=== PATIENT | male | born 1980 | race Caucasian/White ===

== ENCOUNTER 2020-11-12 13:11 | Emergency (ER) | payer SELFPAY ==
[2020-11-12 13:21] VITALS: BP 145/79; PULSE 114; RESP 16; TEMP 36.3; O2SAT 95; BMI 23.5
--- NOTE | 2020-11-12 13:55 | ED_ITS ---
HPI - Back Pain/Injury General: Chief Complaint: Back Pain/Injury Stated Complaint: Back Pain Time Seen by Provider: 11/12/20 13:31 Source: patient Mode of arrival: wheelchair Limitations: no limitations History of Present Illness: HPI Narrative: Patient is a 40-year-old male who presents to ED today with a complaint of left lower back pain and inability to ambulate over the past 6 days. Patient states he was seen at [facility] and admitted to their hospital for pain management as well as a diagnosis of pneumonia. History is somewhat difficult to follow but he states he was given excessive amounts of narcotic pain medications while in the hospital and eventually left AMA stating he felt like they were going to kill him. He states no imaging was obtained of his back and he received no evaluation in regards to his back pain. Patient tells me when he goes to ambulate he feels like his left lower extremity amilcar. He denies fevers/chills. No saddle anesthesia. He is not complaining of urinary incontinence/retention or bowel incontinence. He states pain radiates into his left buttock. He is not complaining of numbness, tingling, loss of sensation to the extremity. He has not noticed any color/temperature changes to the extremity. MD elicited complaint: back pain Onset (ago): day(s) Timing: constant Severity: severe Similar Symptoms Previously: No Quality: sharp and stabbing Location: lumbar spine and left lower back Radiation: buttocks Exacerbating factors: movement and walking Relieving factors: immobilization and sitting upright Associated symptoms: Reports difficulty walking; Deny abdominal pain, chills, dysuria, fatigue, fecal incontinence, fever(s), hematuria, nausea or vomiting Treatments prior to arrival: prescription analgesics Work related injury: No Review of Systems Const: Denies: fever(s), chills, body aches, fatigue or malaise Card: Denies: chest pain Resp: Denies: dyspnea GI: Denies: abdominal pain, nausea, vomiting, diarrhea or fecal incontinence : Denies: flank pain, dysuria or hematuria Musc: Reports: back pain; Denies: neck pain, extremity pain, extremity swelling, joint pain or joint swelling Neuro: Reports: difficulty walking; Denies: headache(s), numbness in extremities, weakness in extremities, sensory changes, lack of coordination or confusion [facility] ED PFSH: Social History Smoking and tobacco status: current every day smoker Substance/Drug Use: former Date of 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; 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 Physical Exam Const: COMMON NORMALS: no acute distress, average body habitus, patient oriented x3, no limitations, healthy appearing, alert and well nourished NUTRITIONAL APPEARANCE: thin ORIENTATION/CONSCIOUSNESS: Yes awake, Yes oriented to person, Yes oriented to place and Yes oriented to time HENMT: COMMON NORMALS: normocephalic and atraumatic HEAD & SCALP: normocephalic and atraumatic Resp: COMMON NORMALS: normal respiratory effort and clear to auscultation bilaterally AUSCULTATION: clear to auscultation bilaterally Cardio: COMMON NORMALS: regular rhythm RATE: tachycardic RHYTHM: regular rhythm GI: COMMON NORMALS: Normal to inspection, nondistended, normoactive bowel sounds present, Soft to palpation, non-tender, No hepatosplenomegaly present and no masses PALPATION: Yes Soft to palpation and Yes No hepatosplenomegaly present : COMMON NORMALS: Yes no CVA tenderness BLADDER/KIDNEY EXAM: Yes no CVA tenderness Back/Pelvis: COMMON NORMALS: no CVA tenderness THORACIC SPINE/UPPER BACK: Yes normal to inspection, Yes thoracic ROM normal, No thoracic spinal tenderness and No paraspinal muscle tenderness LUMBAR SPINE/LOWER BACK: Yes lumbar ROM normal, Yes pain with ROM, No lumbar spinal tenderness and Yes straight leg raise positive left PELVIS: Yes buttock abnormal Buttock abnormal laterality: left Left buttock abnormal details: tenderness SACROILIAC JOINTS: Yes SI joint(s) abnormal SI joint details: tender to palpation (L) BACK IMAGE (MALE): 1. TTP Extremity: COMMON NORMALS: normal to inspection, full ROM, capillary refill normal, no joint enlargement, no clubbing, cyanosis or edema, no calf tenderness and no pedal edema GENERAL: Yes normal exam except as noted OTHER: normal bilateral LE DP/PT pulses and cap refill; sensory normal; normal ROM of knee/hip joints Neuro: COMMON NORMALS: patient oriented x3, moves all extremities, no focal motor deficits and no sensory deficits noted SENSORIUM/ORIENTATION: Yes alert, Yes oriented to person, Yes oriented to place and Yes oriented to time MOTOR EXAM: 5/5 motor strength present throughout DEEP TENDON REFLEXES: Right patellar reflex intensity grade: 2+ and Left patellar reflex intensity grade: 2+ Skin: COMMON NORMALS: no rashes or lesions noted NARRATIVE SKIN EXAM: multiple tattoos GENERAL SKIN EXAM: no rashes or lesions noted TRAUMA: no lacerations or abrasions Course Vital Signs: Vital signs: Vital Signs Temperature 97.4 F L 11/12/20 13:21 Pulse Rate 114 H 11/12/20 13:21 Respiratory Rate 16 11/12/20 13:21 Blood Pressure 145/79 11/12/20 13:21 Pulse Oximetry 95 11/12/20 13:21 MDM - Back Pain/Injury MDM Narrative: Medical decision making narrative: After IM Dexamethasone and Toradol patient reports his pain is improved. He was able to ambulate around the emergency department without assistance. He is requesting a walker to go home with that he may use if pain spikes or returns. Patient has no acute neurologic deficits on exam. CT imaging does show disc bulging and osteophyte complex at L5-S1 contacting the L5-S1 nerve roots which would match patient's symptoms. Patient requesting referral to Dr. Mcgraw for further evaluation stating he has not able to work secondary to pain and trouble ambulating and would like to have a consultation in regards to surgical options. Referral placed with case management. Patient was discharged from [facility] with pain medications, steroids, and muscle relaxers. He may use these as needed for his discomfort. Imaging Data^: CT lumbar: Radiologist's impression: [address] [address] [address] Scan Report Signed Patient: Rush Leo Unit #: [id number] : 1980 Age/Sex: 40 / M ADM Date: 11/12/20 Loc: ER Room/Bed: Attending Dr: Ordering Provider/Ordering MD: Day Ruth Date of Service: 11/12/20 Procedure(s): CT lumbar spine wo con* [id number] Accession Number(s): [id number] Report Number: [id number] WS: [id number] CT LUMBAR SPINE TECHNIQUE: Noncontrast CT of the lumbar spine with coronal and sagittal reformatted images. CLINICAL INFORMATION: L lower back pain/sciatica; unable to ambulate COMPARISON: None. DLP: 1218.[address] scans at [facility] use at least one of these dose optimization techniques: automated exposure control; mA and/or kV adjustment per patient size (includes targeted exams where dose is matched to clinical indication); or iterative reconstruction. FINDINGS: Mild lumbar curve. No acute compression. Mild disc bulging L5-S1. L1-L2: Normal. L2-L3: Normal. L3-L4: No significant disc bulging. Spinal canal and foramen are patent. Mild facet arthropathy. L4-L5: Mild annular bulging with slight effacement of ventral thecal sac. Slight narrowing of the subarticular recess bilaterally. Mild facet arthropathy. Foramen are patent. L5-S1: Left eccentric disc osteophyte complex eccentric to the left. Slight contact of the traversing left S1 nerve root. Correlation left S1 nerve root symptoms. Mild left foraminal narrowing contacts the exiting left L5 nerve root. Visualized pelvic bony structures: Normal. Paravertebral soft tissues: Normal. CT/CT lumbar spine wo con* [id number] IMPRESSION: 1. Mild lumbar curve. No acute compression. 2. Left eccentric disc bulging L5-S1 slightly contacts the left S1 nerve root. 3. Left eccentric disc bulging L5-S1 with peripheral calcification slightly impinges the exiting left L5 nerve root. 4. Mild annular bulging L4-5 with slight narrowing of the subarticular recess bilaterally. Dictated By: Ben Victor MD Signed By: Ben Victor MD Signed Date/Time: 11/12/20 1501 DD/ 1454 Discharge Plan Discharge Patient Disposition: Home Condition: Stable Prescriptions: No Action acetaminophen-codeine 300-30 mg tablet 1 tab PO Q4H PRN (Reason: pain) Qty: 10 RF: 0 prednisone 20 mg tablet 40 mg PO DAILY 5 Days Qty: 10 RF: 0 methocarbamol 750 mg tablet 750 mg PO TID 5 Days Qty: 15 RF: 0 Discharge Orders: Discharge ED (Routine); Ordered 11/12/20 Ordered By: Day Ruth Other Ambulatory Orders: DME: Walker (Order) Location: None Selected Ordered By: Day Ruth Referrals: Sandeep Mcgraw DO [Physician] - Patient Instructions: Lumbar Disc Herniation (ED) Activity Restrictions/Additional Instructions: As we discussed I have placed your information for follow-up with Dr. Mcgraw. Case management should contact you tomorrow or early next week to set you up with this appointment. You need to return to the emergency department for worsening or severe pain, inability to ambulate even with your walker, loss of sensation to your lower extremity, inability to urinate, bowel incontinence, f angel, or any other concerns you may have. Coding Level of Care Code ED Color Paste Mixing Supervisor for Chg Fwd Exam Comprehensive
--- NOTE | 2020-11-12 14:06 | CT_ITS ---
WS: [id number] CT LUMBAR SPINE TECHNIQUE: Noncontrast CT of the lumbar spine with coronal and sagittal reformatted images. CLINICAL INFORMATION: L lower back pain/sciatica; unable to ambulate COMPARISON: None. DLP: 1218.[address] scans at [facility] use at least one of these dose optimization techniques: automated e xposure control; mA and/or kV adjustment per patient size (includes targeted exams where dose is matc hed to clinical indication); or iterative reconstruction. FINDINGS: Mild lumbar curve. No acute compression. Mild disc bulging L5-S1. L1-L2: Normal. L2-L3: Normal. L3-L4: No significant disc bulging. Spinal canal and foramen are patent. Mild facet arthropathy. L4-L5: Mild annular bulging with slight effacement of ventral thecal sac. Slight narrowing of the sub articular recess bilaterally. Mild facet arthropathy. Foramen are patent. L5-S1: Left eccentric disc osteophyte complex eccentric to the left. Slight contact of the traversing left S1 nerve root. Correlation left S1 nerve root symptoms. Mild left foraminal narrowing contacts the exiting left L5 n erve root. Visualized pelvic bony structures: Normal. Paravertebral soft tissues: Normal. CT/CT lumbar spine wo con* [id number] IMPRESSION: 1. Mild lumbar curve. No acute compression. 2. Left eccentric disc bulging L5-S1 slightly contacts the left S1 nerve root. 3. Left eccentric disc bulging L5-S1 with peripheral calcification slightly im pinges the exiting left L5 nerve root. 4. Mild annular bulging L4-5 with slight narrowing of the subarticular recess bilaterally.
[2020-11-12] MEDS: ketorolac 60 mg/2 mL INJ IM (14:18)
[2020-11-12] MEDS: dexamethasone 10 mg/mL INJ 8 MG IM (14:18)
--- NOTE | 2020-11-12 15:30 | PC.NURSE ---
pt ambulated an estimated 50 feet with standby assistance only. pt did not require walker or any other assistive device.
--- NOTE | 2020-11-13 09:21 | DCPLANNER ---
leave manager had message to schedule a follow up appointment for patient with ortho. leave manager called the ortho clinic, spoke with Jeri, gave clinic patients information. leave manager was told that patients information would be printed and reviewed. Clinic will call patient with appointment information.
--- NOTE | 2020-11-18 10:41 | DCPLANNER ---
Patient has a follow up appointment scheduled for Monday, November 24 at 3:[address] Mcgraw. Clinic will call patient with appointment information.
--- NOTE | 2020-11-26 09:08 | DCPLANNER ---
Patient had a follow up appointment scheduled for 11.24.[address] Mcgraw at [facility] - patient did attend appointment.
== END 2020-11-12 15:41 | disposition home or self-care (01) ==
PROVIDERS: Emergency Provider Physician Assistant
DX: M54.5 Low back pain (principal); F17.210 Nicotine dependence, cigarettes, uncomplicated
CPT/HCPCS: 72131; 96372; 99283; J1100; J1885

== ENCOUNTER → 2020-11-24 16:26 | Outpatient (BNVA) | payer SELFPAY | PROVIDERS: Referring Provider Physician Assistant; Visit Provider Orthopaedic Surgery | DX: M51.27 Other intervertebral disc displacement, lumbosacral region (principal); M54.5 Low back pain; M54.2 Cervicalgia | CPT/HCPCS: 72110 ==

== ENCOUNTER 2020-11-26 08:43 | Outpatient (CLI) | payer SELFPAY ==
--- NOTE | 2020-11-26 08:45 | MR_ITS ---
WS: [id number] MRI LUMBAR SPINE NONCONTRAST TECHNIQUE: Sagittal T1-T2 and axial T2 imaging. Patient unable to complete examination. CLINICAL INFORMATION: M51.27 - Other intervertebral disc displacement, lumbosac... COMPARISON: CT November 12, 2020 FINDINGS: Patient unable to complete the entire examination Mild lumbar curve. No acute compression. No high-grade central canal stenosis. L1-L2: Normal. L2-L3: Normal. L3-L4: No significant disc bulging. Mild facet arthropathy. Spinal canal and foramen are patent. L4-L5: Mild annular bulging with slight effacement of the ventral thecal sac. Right eccentric disc bu lging slightly contacts the exiting L4 nerve root with mild right foraminal narrowing. Slight encroac hment traversing right L5 nerve root in the subarticular recess. Mild to moderate facet arthropathy. L5-S1: Mild annular bulging with slight effacement of the ventral thecal sac. Tiny left foraminal pro trusion L5-S1 slightly encroaches on the exiting left L5 nerve root. Right foramen is patent. Central disc bulging slightly encroaches on the traversing left S1 nerve root without significant impingemen t. Mild facet arthropathy. Spinal canal in the cervical and thoracic spine is patent on the disability benefits specialist imaging. Visualized pelvic bony structures: Normal. Paravertebral soft tissues: Normal. MR/MR lumbar spine wo con* [id number] IMPRESSION: 1. Mild lumbar curve. No acute compression. No high-grade central canal stenos is. 2. Right eccentric disc bulging with a small foraminal protrusion L4-5 slightl y contacts the exiting right L4 nerve root. Recommend correlation for right L4 nerve root symptoms. 3. Slight narrowing of the right subarticular recess L4-5 with crowding of the traversing right L5 nerve root. 4. Tiny left foraminal protrusion L5-S1 with peripheral calcification on the C T slightly encroaches on the exiting left L5 nerve root 5. Mild annular bulging L5-S1 slightly contacts the left S1 nerve root 6. Mild to moderate facet arthropathy L4-5.
--- NOTE | 2020-11-26 09:29 | XR_ITS ---
WS: [id number] EYE TECHNIQUE: 2 views of the skull CLINICAL INFORMATION: FOREIGN BODY-METAL IN EYE COMPARISON: None. FINDINGS: No radiopaque foreign bodies. XR/XR eye foreign body [id number] IMPRESSION: No radiopaque foreign bodies.
== END 2020-11-26 08:44 | disposition home or self-care (01) ==
PROVIDERS: Visit Provider Orthopaedic Surgery
DX: M51.27 Other intervertebral disc displacement, lumbosacral region (principal); T15.90XA Foreign body on external eye, part unspecified, unspecified eye, initial encounter; X58.XXXA Exposure to other specified factors, initial encounter; M47.816 Spondylosis without myelopathy or radiculopathy, lumbar region
CPT/HCPCS: 70030; 72148

== ENCOUNTER → 2021-11-11 14:11 | Outpatient (BNVA) | payer MEDICAID, SELFPAY | PROVIDERS: Visit Provider Physician Assistant | DX: M51.27 Other intervertebral disc displacement, lumbosacral region (principal) | CPT/HCPCS: 72110; 99214 ==

== ENCOUNTER 2021-12-27 11:18 | Outpatient (CLI) | payer MEDICAID, SELFPAY ==
--- NOTE | 2021-12-27 11:45 | MR_ITS ---
WS: [id number] MRI LUMBAR SPINE NONCONTRAST TECHNIQUE: Sagittal T1, T2 and STIR imaging. Axial T1 and T2 imaging. CLINICAL INFORMATION: back pain COMPARISON: None. FINDINGS: Mild lumbar curve. No acute compression. No high-grade central canal stenosis. Disc bulging cervical spine elementary school professional imaging at C5-C6 and C6-C7. L1-L2: Normal. L2-L3: Normal. L3-L4: No significant disc bulging. Mild facet arthropathy. Spinal canal and foramen are patent. L4-L5: LEFT eccentric disc bulging with slight encroachment on the exiting LEFT L4 nerve root. Mild L EFT foraminal narrowing. Foramen is patent. Mild facet arthropathy. Spinal canal is patent. L5-S1: Mild annular bulging. Slight effacement of ventral thecal sac. Slight contact of the LEFT S1 n erve root. LEFT eccentric disc bulging with slight contact of the exiting LEFT L5 nerve root with sma ll annular fissure. Mild facet arthropathy. Visualized pelvic bony structures: Normal. Paravertebral soft tissues: Normal. MR/MR lumbar spine wo con* [id number] IMPRESSION: 1. Mild lumbar curve. No acute compression. No high-grade central canal stenos is. 2. Tiny LEFT foraminal protrusion L4-L5 contacts the exiting L4 nerve root. Re commend correlation for LEFT L4 nerve root symptoms. 3. LEFT eccentric disc bulging L5-S1 contacts the exiting LEFT L5 nerve root w ith small annular fissure. Recommend correlation with LEFT L5 nerve root sympto ms. 4. Mild facet arthropathy L3-L5. 5. Disc bulging with a small central protrusion C5-C6. Disc space narrowing wi th endplate degenerative changes at C6-C7 on the elementary school professional imaging.
== END 2021-12-27 11:19 | disposition home or self-care (01) ==
LOC: RAD 11:19
PROVIDERS: Visit Provider Physician Assistant
DX: M51.26 Other intervertebral disc displacement, lumbar region; M51.27 Other intervertebral disc displacement, lumbosacral region; M50.223 Other cervical disc displacement at C6-C7 level; M47.816 Spondylosis without myelopathy or radiculopathy, lumbar region
CPT/HCPCS: 72148; 99213

== ENCOUNTER → 2023-02-22 13:10 | Outpatient (BNVA) | payer MEDICAID, SELFPAY | PROVIDERS: PCP Family Medicine; Visit Provider Internal Medicine Cardiovascular Disease | DX: R07.9 Chest pain, unspecified (principal); R06.02 Shortness of breath | CPT/HCPCS: 99203 ==

== ENCOUNTER 2023-03-03 09:21 | Outpatient (CLI) | payer MEDICAID, SELFPAY ==
--- NOTE | 2023-03-03 09:34 | ECG_ITS ---
[facility] Test Date: 2023-03-03 Pat Name: Rush Leo Department: Room: Gender: Male Machine Stitcher: : 1980 Requested By: Rangel Chandler Order Number: [id number] Talbert MD: Amanda Cummins M.D. Interpretive Statements NAME OF STUDY: EXERCISE SESTAMIBI STRESS TEST INDICATION: Chest Pain, PROCEDURE: The baseline electrocardiogram showed normal sinus rhythm with normal ST-Ts. At the baseline, the patient's blood pressure was 124/78 mm Hg with a heart rate of 84. The patient exercised for 10 minutes and 30 seconds on a standard Slava protocol. Patient attained a maximum heart rate of 176 beats per minute(98% of the maximum predicted heart rate) with a blood pressure at the peak exercise of 163/65 mm Hg. The EKG at the peak exercise revealed no significant changes. Patient did not have any chest pain or any significant arrhythmis with the exercise Sestamibi was injected 1 minute prior to the peak exercise During the recovery phase, there were no new changes. Blood pressure at the end of the recovery phase was 134/63 mm Hg with a heart rate of 95 per minute. CONCLUSION: 1. No significant EKG changes with the treadmill exercise 2. No exercise-induced chest pain or cardiac arrhythmia 3. Good exercise tolerance, attained a maximum of 13.5 METs 4. Sestamibi/Sestamibi perfusion results pending; see separate report. Electronically Signed On 03-17-2023 16:03:34 SENIOR SQL SERVER DATABASE DEVELOPER by Amanda Cummins M.D. [email or web address]
--- NOTE | 2023-03-03 09:34 | NMCV_ITS ---
NM reyna perf SPECT r/s* [id number] Rush Leo Age: 43 Gender: M : 1980 Exam Date: 03/03/2023 09:34 Ordering Phys: Rangel Chandler MD ([email or web address]) Technologist: KEVIN Maravilla Exam Location: [facility] Indications: CHEST PAIN STRESS TEST Please see separate stress test report in [facility] for full findings IMAGE PROTOCOL Rest/Stress 1 Exercise Day Radiopharmaceutical Dose (mCi) Administration Site Administered by Rest: Tc-99m 10.9 IV KEVIN Finch Sestamibi Stress:Tc-99m 32.4 IV KEVIN Finch Sestamiemory Rest: 03-Mar-2023 60 Discovery 630 Stress: 03-Mar-2023 30 Discovery 630 Radiopharmaceutical was injected at 87 % maximum heart rate. Images obtained in supine and prone position. SPECT RESULTS Technical Quality: Excellent Raw Data Analysis: Normal Image Corrections: No attenuation or motion correction applied Summed Stress Score: 0 Summed Rest Score: 0 Summed Difference Score: 0 PERFUSION FINDINGS SPECT images demonstrate homogeneous tracer distribution throughout the myocardium. FUNCTIONAL RESULTS (calculated via Gated SPECT) Stress Image LV EF (%): 78 Stress EDV (mL):87 TID: 0.84 Stress ESV (mL):19 FUNCTIONAL FINDINGS: There is normal left ventricular systolic function. IMPRESSIONS 1. Normal myocardial perfusion imaging with no evidence of ischemia 2. LV systolic function is normal Cristiano Magaña MD (Electronically Signed) Final Date: 04 March 2023 11:05 S
[2023-03-03 09:35] VITALS: BMI 24.1
[2023-03-03 12:10] VITALS: BP 159/61; PULSE 97
== END 2023-03-03 09:22 | disposition home or self-care (01) ==
LOC: CDL 09:22
PROVIDERS: PCP Family Medicine; Visit Provider Internal Medicine Cardiovascular Disease
DX: R07.9 Chest pain, unspecified (principal)
CPT/HCPCS: 36415; 78452; 93017; 96374; A9500